=== PATIENT | female | born 1950 | race Caucasian/White ===

== ENCOUNTER 2016-06-26 08:38 | Day surgery (SDC) | payer MEDICARE, MEDICAID ==
[~2016-06-26 08:38] MED LIST: AMLODIPINE10 MG PO; ASPIRIN 325MG325 MG PO; ATENOLOL100 MG OR; CALCIUM 600600 M1 PO; CINNAMON500 MG PO; ESTRADIOL1 MG OR; GABAPENTIN TAB600 MG PO; HYDROCODONE-APA1 TA1 PO; HYDROXYZINE 25M25 MG PO; KEFLEX500 M1 PO; KETOROLAC10 MG PO; LEVOFLOXACIN 7750 M1 PO; LORTAB 5/500 501 TAB PO; MULTIVITAMIN1 SGL PO; NITROSTAT0.4 MG SL; POTASSIUM GLUCO; ZESTRIL20 MG PO
--- NOTE | 2016-06-26 10:11 | Operative Note ---
Colonoscopy (My) Procedure date: 06/26/16 Date of : 50 Procedure:Colonoscopy Colonoscopy with cold snare polypectomy and hemorrhoid band ligation Indications: Mrs. Love is a 65-year-old female who is here for diagnostic colonoscopy. The patient has had rectal bleeding and some rectal pain. She did have a colonoscopy with Dr. Hector Lim M.D. on February 12, 2014 which was reportedly entirely normal. The patient did have an upper endoscopy in November 2013 secondary to dyspepsia and her upper endoscopy was normal. The patient does have normal hemoglobin 14.3 and hematocrit 40.1. She has normal liver and kidney function. The patient does state that she has 6 or 7 bowel movements daily since her cholecystectomy 30 years ago. She reports no bowel urgency or incontinence. She reports no abdominal pain, weight loss or family history of colon cancer. Performing Provider: Bobby Pepe MD Referrring Provider: Rehan Zuniga M.D. Sedation: Fentanyl 100 mg IV/Versed 7 mg IV Procedure: Prior to the procedure, a history and physical exam was performed, and patient medications and allergies were reviewed. The risks and benefits of the procedure and the sedation options and risks were discussed with the patient. All questions were answered and informed consent was obtained. Patient identification and proposed procedure were verified by the physician and the nurse. The patient was placed in a left lateral decubitus position. Throughout the procedure, the patient's blood pressure, pulse, and oxygen saturations were monitored continuously. Findings: On digital rectal examination there was normal rectal tone. There was some minor anal stenosis and 1 external posterior midline tagged with posterior midline anal fissure that was healing. The colonoscope was introduced through the anal canal to the rectum and advanced to the cecum. The ileocecal valve and appendiceal orifice were identified. The scope was advanced a short distance into the ileum which appeared grossly normal. The scope was then withdrawn into the colon. There were 5 colon polyps identified in the cecum 1, ascending 2, descending 1 and sigmoid 1. These ranged in size from 5-9 mm and were all removed via cold snare polypectomy. There were scattered diverticuli throughout the descending and sigmoid colon (LEFT colon). The rectum itself was normal. Upon retroflexion within the rectum there were grade 1-2 internal hemorrhoids. The hemorrhoids were banded using 3 bands with excellent ligation effect. Impressions: 1. Colonic polyps 5 2. Left-sided diverticulosis 3. Grade 1-2 internal hemorrhoids status post band ligation 3 4. Posterior midline anal fissure with healing and some increased anal sphincter tone/mild anal stenosis Recommendations: I will follow up the polyp histology and recommend repeat screening/surveillance colonoscopy again in 3 years. I would encourage fiber supplementation on a long-term daily maintenance basis. I would also consider nitroglycerin ointment for the anal fissure. If this persists, I would consider surgical sphincterotomy/fissurectomy. Complications: None EBL (ml): 0 at 1011
[2016-06-26 13:25] VITALS: BP 133/60
== END 2016-06-26 11:04 | disposition home or self-care (01) ==
LOC: SDC 08:38
PROVIDERS: Internal Medicine Gastroenterology
PROC: 0DBN8ZX Excision of Sigmoid Colon, Via Natural or Artificial Opening Endoscopic, Diagnostic (ICD-10-PCS; 2016-06-26)
PROC: 0DBM8ZX Excision of Descending Colon, Via Natural or Artificial Opening Endoscopic, Diagnostic (ICD-10-PCS; 2016-06-26)
PROC: 0DBH8ZX Excision of Cecum, Via Natural or Artificial Opening Endoscopic, Diagnostic (ICD-10-PCS; 2016-06-26)
PROC: 06LY4CC Occlusion of Hemorrhoidal Plexus with Extraluminal Device, Percutaneous Endoscopic Approach (ICD-10-PCS; 2016-06-26)
PROC: 0DBK8ZX Excision of Ascending Colon, Via Natural or Artificial Opening Endoscopic, Diagnostic (ICD-10-PCS; principal; 2016-06-26 09:30)
DX: K62.5 Hemorrhage of anus and rectum (principal); D12.0 Benign neoplasm of cecum; D12.2 Benign neoplasm of ascending colon; D12.4 Benign neoplasm of descending colon; D12.5 Benign neoplasm of sigmoid colon; K64.1 Second degree hemorrhoids; K60.2 Anal fissure, unspecified; K57.30 Diverticulosis of large intestine without perforation or abscess without bleeding; E11.9 Type 2 diabetes mellitus without complications

== ENCOUNTER → 2017-02-02 | Outpatient (CLI) | payer MEDICARE, MEDICAID ==
--- NOTE | 2017-02-02 11:15 | RADIOLOGY REPORT PS360 ---
EXAM: CERVICAL SPINE 4 OR 5 VIEWS HISTORY: NECK PAIN,STIFFNESS ORDERING PHYSICIAN: Rehan Zuniga MD PATIENT AGE: 66 years COMPARISON: None FINDINGS: There is normal alignment. Mild degenerative disc disease is present at C5-C6 and C6-C7. Facet arthritic changes are noted with mild left foraminal narrowing at C3-C4 C4-C5 and C5-C6 with minimal right foraminal narrowing at C3-C4. No fracture or dislocation. No destructive process. IMPRESSION: Cervical spondylosis with degenerative disc disease and facet arthritic change with mild foraminal narrowing as described above
== END ==
LOC: RAD 10:28
DX: M54.2 Cervicalgia (principal); M43.6 Torticollis